=== PATIENT | female | born 1940 | race Asian ===

== ENCOUNTER 2019-11-11 19:26 | Inpatient (IN) | payer MEDICARE ==
[~2019-11-11] VITALS: Ht 157.5 cm; Wt 49.9 kg
[2019-11-11 19:26] VITALS: BP 157/73
--- NOTE | 2019-11-11 19:30 | NUR ---
ED Nurse Note: BROUGHT IN BY RODNEY THORNTON FROM HOME C/O KNEE WEAKNESS. PER PATIENT, SHE COMPLAINS OF WEAK KNEES X1DAY AND COULD NOT WALK. VSS WITH TACHY OF 109 AT BEDSIDE, DOES NOT PRESENT WITH FEVER OR COUGH. AAOX4, SERBIAN SPEAKING ONLY, NONAMBULATORY.
--- NOTE | 2019-11-11 19:40 | NUR ---
ED Nurse Note: BLOOD DRAWN AND SENT TO LAB.
--- NOTE | 2019-11-11 19:45 | NUR ---
ED Nurse Note: PT WENT FOR CT
--- NOTE | 2019-11-11 20:16 | NUR ---
ED Nurse Note: PT BACK FROM CT
--- NOTE | 2019-11-11 20:18 | Emergency Room Report ---
History of Present Illness General Chief Complaint: Generalized Weakness Source: Patient Present Illness HPI 79-year-old female presents the ED for evaluation of weakness. Found on street. Close to her home. Brought in by EMS. Patient states her "legs gave out" denies any dizziness. Denies any chest pain or shortness of breath. Denies fevers or chills. No other aggravating relieving factors. Denies any other associated symptoms Allergies: Coded Allergies: No Known Allergies (Unverified , 11/11/19) COVID-19 Screening Contact w/high risk pt: No Recent Travel to affected area: No Experienced COVID-19 symptoms?: No Patient History Past Medical History: HTN Past Surgical History: none Pertinent Family History: none Social History: Denies: smoking, alcohol use, drug use Now: No Immunizations: UTD Reviewed Nursing Documentation: PMH: Agreed; PSxH: Agreed Nursing Documentation-PMH Past Medical History: No History, Except For Hx Hypertension: Yes Review of Systems All Other Systems: negative except mentioned in HPI Physical Exam Vital Signs Date Time Temp Pulse Resp B/P (MAP) Pulse Ox O2 Delivery O2 Flow Rate FiO2 11/11/19 19:18 98.1 105 16 176/82 (113) 99 Room Air 11/11/19 19:26 98 Sp02 EP Interpretation: reviewed, normal General Appearance: no apparent distress, alert, GCS 15, non-toxic Head: normocephalic, atraumatic Eyes: bilateral eye normal inspection, bilateral eye PERRL ENT: hearing grossly normal, normal pharynx, no angioedema, normal voice Neck: full range of motion, supple/symm/no masses Respiratory: chest non-tender, lungs clear, normal breath sounds, speaking full sentences Cardiovascular #1: regular rate, rhythm, no edema Cardiovascular #2: 2+ carotid (R), 2+ carotid (L), 2+ radial (R), 2+ radial (L) , 2+ dorsalis pedis (R), 2+ dorsalis pedis (L) Gastrointestinal: normal bowel sounds, non tender, soft, non-distended, no guarding, no rebound Rectal: deferred Genitourinary: normal inspection, no CVA tenderness Musculoskeletal: back normal, normal range of motion, gait/station normal, non- tender Neurologic: alert, motor strength/tone normal, oriented x3, sensory intact, responsive, speech normal Psychiatric: judgement/insight normal, memory normal, mood/affect normal, no suicidal/homicidal ideation Reflexes: 3+ bicep (R), 3+ bicep (L), 3+ tricep (R), 3+ tricep (L), 3+ knee (R) , 3+ knee (L) Skin: other - see nursing skin notes Lymphatic: no adenopathy Medical Decision Making Diagnostic Impression: Primary Impression: Episode of generalized weakness Additional Impression: Hyponatremia ER Course Hospital Course 79-year-old female presenting to ED with generalized weakness Differential diagnoses include: Pneumonia, UTI, dehydration, VT/unstable angina Clinical course Patient placed on stretcher. On compliance monitor with stable vitals are ED course. After initial history and physical, I ordered labs, IV fluids, EKG, chest x-ray, CT head, bialteral knee xray Labs - no leukocytosis, hb/hct stable, Na 112, Cl 70 EKG - sinus tachycardia no acute ischemic changes itnerpreted by me CXR - no acute process CT Head no actue process bialteral knee xray no acute process patient alert oriented. vitals stable. started on NS maintenance fluids. Case discussed with Dr Lowery and they agreed to admit patient to their service for further care and support I feel this is a highly complex case requiring extensive working including EKG/ Rhythm strip, Xray/CT/US, Blood/urine lab work, repeat exams while in ED, and administration of strong opiates/narcotics for pain control, admission to hospital or close patient follow up. Diagnosis - hyponatremia, episode of generalized weakness Patient admitted to floor in serious condition Labs Test 11/11/19 20:00 White Blood Count 3.6 K/UL (4.8-10.8) Red Blood Count 3.24 M/UL (4.20-5.40) Hemoglobin 9.9 G/DL (12.0-16.0) Hematocrit 29.0 % (37.0-47.0) Mean Corpuscular Volume 90 FL (80-99) Mean Corpuscular Hemoglobin 30.6 PG (27.0-31.0) Mean Corpuscular Hemoglobin Concent 34.0 G/DL (32.0-36.0) Red Cell Distribution Width 11.0 % (11.6-14.8) Platelet Count 210 K/UL (150-450) Mean Platelet Volume 5.5 FL (6.5-10.1) Neutrophils (%) (Auto) 57.4 % (45.0-75.0) Lymphocytes (%) (Auto) 28.2 % (20.0-45.0) Monocytes (%) (Auto) 13.0 % (1.0-10.0) Eosinophils (%) (Auto) 0.7 % (0.0-3.0) Basophils (%) (Auto) 0.8 % (0.0-2.0) Sodium Level 112 MMOL/L (136-145) Potassium Level 3.7 MMOL/L (3.5-5.1) Chloride Level 78 MMOL/L (98-107) Carbon Dioxide Level 20 MMOL/L (21-32) Anion Gap 13 mmol/L (5-15) Blood Urea Nitrogen 10 mg/dL (7-18) Creatinine 0.8 MG/DL (0.55-1.30) Estimat Glomerular Filtration Rate > 60 mL/min (>60) Glucose Level 170 MG/DL (74-106) Calcium Level 8.9 MG/DL (8.5-10.1) Total Bilirubin 1.0 MG/DL (0.2-1.0) Aspartate Amino Transf (AST/SGOT) 16 U/L (15-37) Alanine Aminotransferase (ALT/SGPT) 20 U/L (12-78) Alkaline Phosphatase 68 U/L (46-116) Troponin I 0.001 ng/mL (0.000-0.056) Pro-B-Type Natriuretic Peptide 147 pg/mL (0-125) Total Protein 7.0 G/DL (6.4-8.2) Albumin 3.8 G/DL (3.4-5.0) Globulin 3.2 g/dL Albumin/Globulin Ratio 1.2 (1.0-2.7) EKG Diagnostic Results Rate: tachycardiac Rhythm: NSR ST Segments: no acute changes ASA given to the pt in ED: No Rhythm Strip Diag. Results EP Interpretation: yes Rhythm: NSR, no PVC's, no ectopy Chest X-Ray Diagnostic Results Chest X-Ray Diagnostic Results : Chest X-Ray Ordered: Yes # of Views/Limited/Complete: 1 View Indication: Other EP Interpretation: Yes Interpretation: no consolidation, no effusion, no pneumothorax, no acute cardiopulmonary disease Impression: No acute disease Electronically Signed by: Electronically signed by Yunior Coffman MD Other X-Ray Diagnostic Results Other X-Ray Diagnostic Results #1: X-Ray ordered: R knee # of Views/Limited Vs Complete: 3 View Indication: Pain EP Interpretation: Yes Interpretation: no dislocation, no soft tissue swelling, no fractures Impression: No acute disease Electronically Signed by: Electronically signed by Yunior Coffman MD Other X-Ray Diagnostic Results #2: X-Ray ordered: L knee # of Views/Limited Vs Complete: 3 View Indication: Pain EP Interpretation: Yes Interpretation: no dislocation, no soft tissue swelling, no fractures Impression: No acute disease Electronically Signed by: Electronically signed by Yunior Coffman MD CT/MRI/US Diagnostic Results CT/MRI/US Diagnostic Results : Imaging Test Ordered: CT head Impression COMPARISON: No relevant prior studies available. FINDINGS: Brain: No acute intracranial hemorrhage or cortical ischemia. Chronic small vessel ischemic changes. Ventricles: Unremarkable. Bones/joints: Unremarkable. No acute fracture. Soft tissues: Unremarkable. Sinuses: Unremarkable as visualized. Mastoid air cells: Unremarkable as visualized. IMPRESSION: No acute intracranial hemorrhage or skull fracture. Last Vital Signs Date Time Temp Pulse Resp B/P (MAP) Pulse Ox O2 Delivery O2 Flow Rate FiO2 11/11/19 19:26 109 16 Room Air 98 11/11/19 19:26 98.4 157/73 99 Status: improved Disposition: ADMITTED INPATIENT Condition: Serious Yunior Coffman MD Nov 11, 2019 20:18
--- NOTE | 2019-11-11 20:25 | Diagnostic Imaging Report ---
EXAM: CT Head Without Intravenous Contrast CLINICAL HISTORY: WEAK TECHNIQUE: Axial computed tomography images of the head/brain without intravenous contrast. CTDI is 53 mGy and DLP is 1045 mGy-cm. One or more of the following dose reduction techniques were used: automated exposure control, adjustment of the mA and/or kV according to patient size, use of iterative reconstruction technique. COMPARISON: No relevant prior studies available. FINDINGS: Brain: No acute intracranial hemorrhage or cortical ischemia. Chronic small vessel ischemic changes. Ventricles: Unremarkable. Bones/joints: Unremarkable. No acute fracture. Soft tissues: Unremarkable. Sinuses: Unremarkable as visualized. Mastoid air cells: Unremarkable as visualized. IMPRESSION: No acute intracranial hemorrhage or skull fracture.
[2019-11-11 20:32] LABS: BASOPHILS % (AUTO) 0.8 % (0.0-2.0); EOSINOPHILS % (AUTO) 0.7 % (0.0-3.0); HEMOGLOBIN 9.9 G/DL (12.0-16.0); LYMPHOCYTES % (AUTO) 28.2 % (20.0-45.0); MEAN CORPUSCULAR VOLUME 90 FL (80-99); NEUTROPHILS % (AUTO) 57.4 % (45.0-75.0); PLATELET COUNT 210 K/UL (150-450); RED BLOOD COUNT 3.24 M/UL (4.20-5.40); WHITE BLOOD COUNT 3.6 K/UL (4.8-10.8)
--- NOTE | 2019-11-11 20:35 | Diagnostic Imaging Report ---
EXAM: XR Left Knee, 3 Views CLINICAL HISTORY: WEAK TECHNIQUE: Three views of the left knee. COMPARISON: No relevant prior studies available. FINDINGS: Bones/joints: No acute displaced fracture or dislocation. No significant joint effusion. Soft tissues: Unremarkable. IMPRESSION: No acute displaced fracture or dislocation.
--- NOTE | 2019-11-11 20:35 | Diagnostic Imaging Report ---
EXAM: XR Right Knee, 3 Views CLINICAL HISTORY: WEAK TECHNIQUE: Three views of the right knee. COMPARISON: No relevant prior studies available. FINDINGS: Bones/joints: No acute displaced fracture or dislocation. No significant joint effusion. Soft tissues: Unremarkable. IMPRESSION: No acute displaced fracture or dislocation.
--- NOTE | 2019-11-11 20:35 | Diagnostic Imaging Report ---
EXAM: XR Chest, 1 View CLINICAL HISTORY: WEAK TECHNIQUE: Frontal view of the chest. COMPARISON: No relevant prior studies available. FINDINGS: Lungs: Left perihilar 3 cm prominence which may be artifactual, consolidation, versus lesion. Pleural space: Unremarkable. No pneumothorax. Heart: Unremarkable. No cardiomegaly. Mediastinum: Unremarkable. Bones/joints: Unremarkable. IMPRESSION: Left perihilar 3 cm prominence which may be artifactual, consolidation, versus lesion.
[2019-11-11 20:47] LABS: ALANINE AMINOTRANSFERASE 20 U/L (12-78); ALBUMIN 3.8 G/DL (3.4-5.0); ALBUMIN/GLOBULIN RATIO 1.2 (1.0-2.7); ALKALINE PHOSPHATASE 68 U/L (46-116); ANION GAP 13 mmol/L (5-15); ASPARTATE AMINO TRANSFERASE 16 U/L (15-37); BLOOD UREA NITROGEN 10 mg/dL (7-18); CALCIUM 8.9 MG/DL (8.5-10.1); CARBON DIOXIDE 20 MMOL/L (21-32); CHLORIDE 78 MMOL/L (98-107); CREATININE 0.8 MG/DL (0.55-1.30); POTASSIUM 3.7 MMOL/L (3.5-5.1)
[2019-11-11 20:58] LABS: SODIUM 112 MMOL/L (136-145)
[2019-11-11 22:00] VITALS: BP 134/54
--- NOTE | 2019-11-11 22:00 | NUR ---
ED Nurse Note: pt is calm and resting. vss, nad.
[2019-11-11 22:30] LABS: BILIRUBIN, URINE NEGATIVE (NEGATIVE); COLOR,URINE PALE YELLOW; GLUCOSE, URINE (UA) NEGATIVE (NEGATIVE); KETONES,URINE NEGATIVE (NEGATIVE); LEUKOCYTE ESTERASE ,URINE NEGATIVE (NEGATIVE); NITRITE,URINE NEGATIVE (NEGATIVE); PH,URINE 8 (4.5-8.0); PROTEIN,URINE 1+ (NEGATIVE); UROBILINOGEN,URINE NORMAL MG/DL (0.0-1.0)
[2019-11-11 22:31] LABS: APPEARANCE,URINE CLEAR
[2019-11-12] VITALS (11 sets, daily range): BP systolic 126–168; BP diastolic 66–92
--- NOTE | 2019-11-12 | NUR ---
ED Nurse Note: repeat BMP drawn per admitting order
[2019-11-12 00:47] LABS: ANION GAP 11 mmol/L (5-15); BLOOD UREA NITROGEN 8 mg/dL (7-18); CALCIUM 8.3 MG/DL (8.5-10.1); CARBON DIOXIDE 20 MMOL/L (21-32); CHLORIDE 85 MMOL/L (98-107); CREATININE 0.6 MG/DL (0.55-1.30); POTASSIUM 3.6 MMOL/L (3.5-5.1)
[2019-11-12 00:53] LABS: SODIUM 113 MMOL/L (136-145)
--- NOTE | 2019-11-12 01:00 | NUR ---
ED Nurse Note: pt is calm and sleeping. vss, nad.
--- NOTE | 2019-11-12 04:00 | NUR ---
ED Nurse Note: repeat bmp drawn per admitting order
[2019-11-12 04:08] LABS: BASOPHILS % (AUTO) 1.4 % (0.0-2.0); HEMATOCRIT 29.7 % (37.0-47.0); HEMOGLOBIN 10.9 G/DL (12.0-16.0); LYMPHOCYTES % (AUTO) 48.4 % (20.0-45.0); MEAN CORPUSCULAR VOLUME 85 FL (80-99); MONOCYTES % (AUTO) 18.4 % (1.0-10.0); NEUTROPHILS % (AUTO) 30.9 % (45.0-75.0); PLATELET COUNT 246 K/UL (150-450); RED BLOOD COUNT 3.49 M/UL (4.20-5.40); WHITE BLOOD COUNT 4.7 K/UL (4.8-10.8)
[2019-11-12 04:49] LABS: ALANINE AMINOTRANSFERASE 21 U/L (12-78); ALBUMIN 3.8 G/DL (3.4-5.0); ALBUMIN/GLOBULIN RATIO 1.2 (1.0-2.7); ALKALINE PHOSPHATASE 72 U/L (46-116); ANION GAP 11 mmol/L (5-15); ASPARTATE AMINO TRANSFERASE 18 U/L (15-37); BILIRUBIN,TOTAL 0.9 MG/DL (0.2-1.0); BLOOD UREA NITROGEN 6 mg/dL (7-18); CALCIUM 8.6 MG/DL (8.5-10.1); CARBON DIOXIDE 21 MMOL/L (21-32); CHLORIDE 89 MMOL/L (98-107); CREATININE 0.6 MG/DL (0.55-1.30); POTASSIUM 3.9 MMOL/L (3.5-5.1); SODIUM 121 MMOL/L (136-145)
--- NOTE | 2019-11-12 06:00 | NUR ---
ED Nurse Note: pt is calm and sleeping. vss, nad.
--- NOTE | 2019-11-12 06:52 | NUR ---
HAND-OFF: Report given to Mickie DIAZ. Endorsed plan of care.
--- NOTE | 2019-11-12 07:05 | NUR ---
ED Nurse Note: Received report from Berlin Van, patient is in the bed with close eyes, VSS at this time, no acute distress noted.
--- NOTE | 2019-11-12 08:00 | NUR ---
ED Nurse Note: morning labs taken, sent to the lab
--- NOTE | 2019-11-12 08:10 | NUR ---
ED Nurse Note: Breakfast tray provided.
--- NOTE | 2019-11-12 08:16 | Consultation ---
History of Present Illness General Chief Complaint: Generalized Weakness Reason for Consultation: Hyponatremia Present Illness HPI 79 yo F w/ no known PMHx who was BIBA after being found down on the street. Patient states her "legs gave out" denies any dizziness. Denies any chest pain or shortness of breath. Denies fevers or chills. No other aggravating relieving factors. Denies any other associated symptoms. In the ED pt was found to be initially hypertensive and tachycardic but HDS and sating well on RA. Hemodynamics improved after 2L NS IV was given. EKG sinus tac per ER read. Labs sig for Na of 113, hypo k. XR bilat knee wnl. CTB wnl. CXR w/ L perihilar 3cm lesion. She received 2L of NS- repeat sodium 121 this am - with again dropping to 118. IVF switch to 3%ns at 30cc at that pointt Allergies: Coded Allergies: No Known Allergies (Unverified , 11/11/19) Medication History No Active Prescriptions or Reported Meds Patient History Healthcare decision maker Resuscitation status Advanced Directive on File Review of Systems All Other Systems: negative except mentioned in HPI Physical Exam General Appearance: WD/WN, no apparent distress Lines, tubes and drains: peripheral HEENT: normocephalic, atraumatic, EOMI Neck: non-tender, normal alignment Respiratory/Chest: chest wall non-tender, lungs clear, normal breath sounds Cardiovascular/Chest: normal peripheral pulses, normal rate, regular rhythm Abdomen: normal bowel sounds, non tender, soft, no organomegaly Extremities: normal range of motion, non-tender, no edema Skin Exam: normal pigmentation, warm/dry, no diaphoresis 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 Last 24 Hour Vital Signs Date Time Temp Pulse Resp B/P (MAP) Pulse Ox O2 Delivery O2 Flow Rate FiO2 11/12/19 06:00 98.2 75 18 137/88 98 Room Air 11/12/19 01:00 98.5 81 18 145/72 99 Room Air 98 11/11/19 22:00 78 16 134/54 99 Room Air 98 11/11/19 19:26 109 16 Room Air 98 11/11/19 19:26 98.4 109 16 157/73 99 Room Air 11/11/19 19:18 98.1 105 16 176/82 (113) 99 Room Air Intake and Output 11/11/19 11/12/19 19:00 07:00 Intake Total 1500 ml Output Total 1400 ml Balance 100 ml Intake Oral 0 ml IV Total 1500 ml Output Urine Total 1400 ml Laboratory Tests Test 11/11/19 20:00 11/11/19 20:45 11/11/19 23:40 11/12/19 03:55 White Blood Count 3.6 K/UL (4.8-10.8) L 4.7 K/UL (4.8-10.8) L Red Blood Count 3.24 M/UL (4.20-5.40) L 3.49 M/UL (4.20-5.40) L Hemoglobin 9.9 G/DL (12.0-16.0) L 10.9 G/DL (12.0-16.0) L Hematocrit 29.0 % (37.0-47.0) L 29.7 % (37.0-47.0) L Mean Corpuscular Volume 90 FL (80-99) 85 FL (80-99) Mean Corpuscular Hemoglobin 30.6 PG (27.0-31.0) 31.1 PG (27.0-31.0) H Mean Corpuscular Hemoglobin Concent 34.0 G/DL (32.0-36.0) 36.5 G/DL (32.0-36.0) H Red Cell Distribution Width 11.0 % (11.6-14.8) L 10.0 % (11.6-14.8) L Platelet Count 210 K/UL (150-450) 246 K/UL (150-450) Mean Platelet Volume 5.5 FL (6.5-10.1) L 5.1 FL (6.5-10.1) L Neutrophils (%) (Auto) 57.4 % (45.0-75.0) 30.9 % (45.0-75.0) L Lymphocytes (%) (Auto) 28.2 % (20.0-45.0) 48.4 % (20.0-45.0) H Monocytes (%) (Auto) 13.0 % (1.0-10.0) H 18.4 % (1.0-10.0) H Eosinophils (%) (Auto) 0.7 % (0.0-3.0) 1.0 % (0.0-3.0) Basophils (%) (Auto) 0.8 % (0.0-2.0) 1.4 % (0.0-2.0) Sodium Level 112 MMOL/L (136-145) *L 113 MMOL/L (136-145) *L 121 MMOL/L (136-145) L Potassium Level 3.7 MMOL/L (3.5-5.1) 3.6 MMOL/L (3.5-5.1) 3.9 MMOL/L (3.5-5.1) Chloride Level 78 MMOL/L (98-107) L 85 MMOL/L (98-107) L 89 MMOL/L (98-107) L Carbon Dioxide Level 20 MMOL/L (21-32) L 20 MMOL/L (21-32) L 21 MMOL/L (21-32) Anion Gap 13 mmol/L (5-15) 11 mmol/L (5-15) 11 mmol/L (5-15) Blood Urea Nitrogen 10 mg/dL (7-18) 8 mg/dL (7-18) 6 mg/dL (7-18) L Creatinine 0.8 MG/DL (0.55-1.30) 0.6 MG/DL (0.55-1.30) 0.6 MG/DL (0.55-1.30) Estimat Glomerular Filtration Rate > 60 mL/min (>60) > 60 mL/min (>60) > 60 mL/min (>60) Glucose Level 170 MG/DL (74-106) H 121 MG/DL (74-106) H 122 MG/DL (74-106) H Osmolality 136 mOsm/kg (297-317) L Calcium Level 8.9 MG/DL (8.5-10.1) 8.3 MG/DL (8.5-10.1) L 8.6 MG/DL (8.5-10.1) Total Bilirubin 1.0 MG/DL (0.2-1.0) 0.9 MG/DL (0.2-1.0) Aspartate Amino Transf (AST/SGOT) 16 U/L (15-37) 18 U/L (15-37) Alanine Aminotransferase (ALT/SGPT) 20 U/L (12-78) 21 U/L (12-78) Alkaline Phosphatase 68 U/L (46-116) 72 U/L (46-116) Troponin I 0.001 ng/mL (0.000-0.056) Pro-B-Type Natriuretic Peptide 147 pg/mL (0-125) H Total Protein 7.0 G/DL (6.4-8.2) 7.1 G/DL (6.4-8.2) Albumin 3.8 G/DL (3.4-5.0) 3.8 G/DL (3.4-5.0) Globulin 3.2 g/dL 3.3 g/dL Albumin/Globulin Ratio 1.2 (1.0-2.7) 1.2 (1.0-2.7) Urine Color Pale yellow Urine Appearance Clear Urine pH 8 (4.5-8.0) Urine Specific [place] 1.015 (1.005-1.035) Urine Protein 1+ (NEGATIVE) H Urine Glucose (UA) Negative (NEGATIVE) Urine Ketones Negative (NEGATIVE) Urine Blood Negative (NEGATIVE) Urine Nitrite Negative (NEGATIVE) Urine Bilirubin Negative (NEGATIVE) Urine Urobilinogen Normal MG/DL (0.0-1.0) Urine Leukocyte Esterase Negative (NEGATIVE) Urine RBC 0 /HPF (0 - 2) Urine WBC 0-2 /HPF (0 - 2) Urine Squamous Epithelial Cells Few /LPF (NONE/OCC) Urine Amorphous Sediment Few /LPF (NONE) H Urine Bacteria Occasional /HPF (NONE) Urine Osmolality 136 mOsm/kg (429-449) L Urine Random Creatinine Pending Urine Random Microalbumin Pending Urine Random Sodium 41 mmol/L (20-110) Urine Random Chloride 50 mmol/L (55-125) L Urine Creatinine 6.7 MG/DL (30.0-125.0) L Urine Microalbumin/Creatinine Ratio Pending Magnesium Level 1.8 MG/DL (1.8-2.4) Thyroid Stimulating Hormone (TSH) 0.217 uiU/mL (0.358-3.740) Test 11/12/19 04:20 11/12/19 07:59 Cortisol AM Sample Pending Sodium Level Pending Potassium Level Pending Chloride Level Pending Carbon Dioxide Level Pending Blood Urea Nitrogen Pending Creatinine Pending Estimat Glomerular Filtration Rate Pending Glucose Level Pending Calcium Level Pending Height (Feet): 5 Height (Inches): 2.00 Weight (Pounds): 110 Medications Current Medications Medications (Trade) Dose Ordered Sig/Michelle Route PRN Reason Start Time Stop Time Status Last Admin Dose Admin Acetaminophen (Tylenol) 650 mg Q4H PRN ORAL Mild Pain (Pain Scale 1-3) 11/11/19 21:45 12/11/19 21:44 Acetaminophen (Tylenol) 650 mg Q4H PRN ORAL Temp >100.5 11/11/19 21:45 12/11/19 21:44 Dextrose (Dextrose 50%) 25 ml Q30M PRN IV Hypoglycemia 11/11/19 21:45 02/09/20 21:44 Dextrose (Dextrose 50%) 50 ml Q30M PRN IV Hypoglycemia 11/11/19 21:45 02/09/20 21:44 Enoxaparin Sodium (Lovenox) 40 mg DAILY SUBQ 11/12/19 09:00 02/10/20 08:59 Ondansetron HCl (Zofran) 4 mg Q6H PRN IVP Nausea & Vomiting 11/11/19 21:45 12/11/19 21:44 Sodium Chloride 1,000 ml @ 200 mls/hr Q5H IV 11/11/19 21:15 12/11/19 21:14 11/12/19 07:36 Assessment/Plan Diagnosis [place] I: #Hyponatremia- likely hypovolumic given response to hydration- urine chemistries however suggest excess free water intake given low urine osmol and urine sodium 40 - however checked after NS hydration administered #AMS and generalized weakness likely due to severe hyponatremia #possible HTN #s/p fall #syncope? - switch to 3% ns at 30cc/hr - monitor BMP q4hr - replete K - monitor mag and phos daily - repeat urine sodium, osmol - check TSh - am cortisol - target correction < 10 meq over 24 hours - hydralazine prn for elevated BP - 2d echo Conrad Noland M.D. Nov 12, 2019 08:16
[2019-11-12 08:34] LABS: ANION GAP 11 mmol/L (5-15); BLOOD UREA NITROGEN 5 mg/dL (7-18); CALCIUM 9.1 MG/DL (8.5-10.1); CARBON DIOXIDE 19 MMOL/L (21-32); CHLORIDE 87 MMOL/L (98-107); CREATININE 0.5 MG/DL (0.55-1.30); POTASSIUM 3.4 MMOL/L (3.5-5.1)
[2019-11-12 08:48] LABS: SODIUM 118 MMOL/L (136-145)
[2019-11-12] MEDS: Enoxaparin 40mg Inj SUBQ SCH (09:13)
[2019-11-12] MEDS ORDERED: NaCl 3% 500ml 250 ML IV SCH (09:15)
--- NOTE | 2019-11-12 12:03 | NUR ---
ED Nurse Note: BMP labs taken, sent down
[2019-11-12 12:54] LABS: ANION GAP 11 mmol/L (5-15); BLOOD UREA NITROGEN 5 mg/dL (7-18); CALCIUM 8.6 MG/DL (8.5-10.1); CARBON DIOXIDE 19 MMOL/L (21-32); CHLORIDE 89 MMOL/L (98-107); CREATININE 0.4 MG/DL (0.55-1.30); POTASSIUM 3.3 MMOL/L (3.5-5.1)
[2019-11-12 12:57] LABS: SODIUM 119 MMOL/L (136-145)
--- NOTE | 2019-11-12 13:14 | NUR ---
ED Nurse Note: Patient was able to use bed side comode, patient stated fell dizzy, has unsteady gait. AAO x4, VSS at this time.
[2019-11-12] MEDS ORDERED: HydrALAZINE 25mg tab ORAL PRN (14:15)
--- NOTE | 2019-11-12 14:17 | History and Physical ---
History of Present Illness General Date patient seen: Nov 12, 2019 Reason for Hospitalization: Generalized Weakness Present Illness HPI 79 yo F w/ no known PMHx (pt poor historian & limited by language barrier) who was BIBA after being found down on the street. Patient states her "legs gave out " denies any dizziness. Denies any chest pain or shortness of breath. Denies fevers or chills. No other aggravating relieving factors. Denies any other associated symptoms. In the ED pt was found to be initially hypertensive and tachycardic but HDS and sating well on RA. Hemodynamics improved after 2L NS IV was given. EKG sinus tac per ER read. Labs sig for Na of 119, hypo k. XR bilat knee wnl. CTB wnl. CXR w/ L perihilar 3cm lesion (possible artifact). On exam pt was calm and alert and oriented c/w a chronic hyponatremia. Denied current dizziness. Allergies: Coded Allergies: No Known Allergies (Unverified , 11/11/19) COVID-19 Screening Contact w/high risk pt: No Recent Travel to affected area: No Experienced COVID-19 symptoms?: No Patient History Healthcare decision maker Resuscitation status Advanced Directive on File Review of Systems Constitutional: Denies: no symptoms, see HPI, chills, sweats, fever, malaise, weakness, other Respiratory: Denies: no symptoms, see HPI, cough, orthopnea, shortness of breath, stridor, wheezing, CAZARES, sputum, other Cardiovascular: Denies: no symptoms, see HPI, chest pain, edema, palpitations, syncope, PND, other Gastrointestinal: Denies: no symptoms, see HPI, abdominal pain, constipation, diarrhea, nausea, vomiting, melena, hematemesis, other Genitourinary: Denies: no symptoms, see HPI, discharge, dysuria, frequency, hematuria, pain, retention, incontinence, urgency, vag bleed/dc, other Skin: Denies: no symptoms, see HPI, rash, change in color, change in hair/nails , dryness, lesions, other Neurological: Reports: dizziness Physical Exam General Appearance: WD/WN, no apparent distress, alert HEENT: normocephalic, atraumatic, anicteric, PERRL, EOMI Neck: normal alignment, supple Respiratory/Chest: lungs clear, normal breath sounds, no respiratory distress Cardiovascular/Chest: normal peripheral pulses, regular rhythm, regularly irregular, no gallop/murmur, no JVD Abdomen: non tender, soft Extremities: normal inspection, no edema Neurologic: tie inspector II-XII grossly normal, alert Last 24 Hour Vital Signs Date Time Temp Pulse Resp B/P (MAP) Pulse Ox O2 Delivery O2 Flow Rate FiO2 11/12/19 10:45 98.2 74 18 135/87 98 Room Air 98 11/12/19 06:00 98.2 75 18 137/88 98 Room Air 11/12/19 01:00 98.5 81 18 145/72 99 Room Air 98 11/11/19 22:00 78 16 134/54 99 Room Air 98 11/11/19 19:26 109 16 Room Air 98 11/11/19 19:26 98.4 109 16 157/73 99 Room Air 11/11/19 19:18 98.1 105 16 176/82 (113) 99 Room Air Intake and Output 11/11/19 11/12/19 19:00 07:00 Intake Total 1500 ml Output Total 1400 ml Balance 100 ml Intake Oral 0 ml IV Total 1500 ml Output Urine Total 1400 ml Laboratory Tests Test 11/11/19 20:00 11/11/19 20:45 11/11/19 23:40 11/12/19 03:55 White Blood Count 3.6 K/UL (4.8-10.8) L 4.7 K/UL (4.8-10.8) L Red Blood Count 3.24 M/UL (4.20-5.40) L 3.49 M/UL (4.20-5.40) L Hemoglobin 9.9 G/DL (12.0-16.0) L 10.9 G/DL (12.0-16.0) L Hematocrit 29.0 % (37.0-47.0) L 29.7 % (37.0-47.0) L Mean Corpuscular Volume 90 FL (80-99) 85 FL (80-99) Mean Corpuscular Hemoglobin 30.6 PG (27.0-31.0) 31.1 PG (27.0-31.0) H Mean Corpuscular Hemoglobin Concent 34.0 G/DL (32.0-36.0) 36.5 G/DL (32.0-36.0) H Red Cell Distribution Width 11.0 % (11.6-14.8) L 10.0 % (11.6-14.8) L Platelet Count 210 K/UL (150-450) 246 K/UL (150-450) Mean Platelet Volume 5.5 FL (6.5-10.1) L 5.1 FL (6.5-10.1) L Neutrophils (%) (Auto) 57.4 % (45.0-75.0) 30.9 % (45.0-75.0) L Lymphocytes (%) (Auto) 28.2 % (20.0-45.0) 48.4 % (20.0-45.0) H Monocytes (%) (Auto) 13.0 % (1.0-10.0) H 18.4 % (1.0-10.0) H Eosinophils (%) (Auto) 0.7 % (0.0-3.0) 1.0 % (0.0-3.0) Basophils (%) (Auto) 0.8 % (0.0-2.0) 1.4 % (0.0-2.0) Sodium Level 112 MMOL/L (136-145) *L 113 MMOL/L (136-145) *L 121 MMOL/L (136-145) L Potassium Level 3.7 MMOL/L (3.5-5.1) 3.6 MMOL/L (3.5-5.1) 3.9 MMOL/L (3.5-5.1) Chloride Level 78 MMOL/L (98-107) L 85 MMOL/L (98-107) L 89 MMOL/L (98-107) L Carbon Dioxide Level 20 MMOL/L (21-32) L 20 MMOL/L (21-32) L 21 MMOL/L (21-32) Anion Gap 13 mmol/L (5-15) 11 mmol/L (5-15) 11 mmol/L (5-15) Blood Urea Nitrogen 10 mg/dL (7-18) 8 mg/dL (7-18) 6 mg/dL (7-18) L Creatinine 0.8 MG/DL (0.55-1.30) 0.6 MG/DL (0.55-1.30) 0.6 MG/DL (0.55-1.30) Estimat Glomerular Filtration Rate > 60 mL/min (>60) > 60 mL/min (>60) > 60 mL/min (>60) Glucose Level 170 MG/DL (74-106) H 121 MG/DL (74-106) H 122 MG/DL (74-106) H Osmolality 136 mOsm/kg (297-317) L Calcium Level 8.9 MG/DL (8.5-10.1) 8.3 MG/DL (8.5-10.1) L 8.6 MG/DL (8.5-10.1) Total Bilirubin 1.0 MG/DL (0.2-1.0) 0.9 MG/DL (0.2-1.0) Aspartate Amino Transf (AST/SGOT) 16 U/L (15-37) 18 U/L (15-37) Alanine Aminotransferase (ALT/SGPT) 20 U/L (12-78) 21 U/L (12-78) Alkaline Phosphatase 68 U/L (46-116) 72 U/L (46-116) Troponin I 0.001 ng/mL (0.000-0.056) Pro-B-Type Natriuretic Peptide 147 pg/mL (0-125) H Total Protein 7.0 G/DL (6.4-8.2) 7.1 G/DL (6.4-8.2) Albumin 3.8 G/DL (3.4-5.0) 3.8 G/DL (3.4-5.0) Globulin 3.2 g/dL 3.3 g/dL Albumin/Globulin Ratio 1.2 (1.0-2.7) 1.2 (1.0-2.7) Urine Color Pale yellow Urine Appearance Clear Urine pH 8 (4.5-8.0) Urine Specific Wheeler 1.015 (1.005-1.035) Urine Protein 1+ (NEGATIVE) H Urine Glucose (UA) Negative (NEGATIVE) Urine Ketones Negative (NEGATIVE) Urine Blood Negative (NEGATIVE) Urine Nitrite Negative (NEGATIVE) Urine Bilirubin Negative (NEGATIVE) Urine Urobilinogen Normal MG/DL (0.0-1.0) Urine Leukocyte Esterase Negative (NEGATIVE) Urine RBC 0 /HPF (0 - 2) Urine WBC 0-2 /HPF (0 - 2) Urine Squamous Epithelial Cells Few /LPF (NONE/OCC) Urine Amorphous Sediment Few /LPF (NONE) H Urine Bacteria Occasional /HPF (NONE) Urine Osmolality 136 mOsm/kg (429-449) L Urine Random Creatinine Pending Urine Random Microalbumin Pending Urine Random Sodium 41 mmol/L (20-110) Urine Random Chloride 50 mmol/L (55-125) L Urine Creatinine 6.7 MG/DL (30.0-125.0) L Urine Microalbumin/Creatinine Ratio Pending Magnesium Level 1.8 MG/DL (1.8-2.4) Thyroid Stimulating Hormone (TSH) 0.217 uiU/mL (0.358-3.740) Test 11/12/19 04:20 11/12/19 07:59 11/12/19 12:03 Cortisol AM Sample Pending Sodium Level 118 MMOL/L (136-145) *L 119 MMOL/L (136-145) *L Potassium Level 3.4 MMOL/L (3.5-5.1) L 3.3 MMOL/L (3.5-5.1) L Chloride Level 87 MMOL/L (98-107) L 89 MMOL/L (98-107) L Carbon Dioxide Level 19 MMOL/L (21-32) L 19 MMOL/L (21-32) L Anion Gap 11 mmol/L (5-15) 11 mmol/L (5-15) Blood Urea Nitrogen 5 mg/dL (7-18) L 5 mg/dL (7-18) L Creatinine 0.5 MG/DL (0.55-1.30) L 0.4 MG/DL (0.55-1.30) L Estimat Glomerular Filtration Rate > 60 mL/min (>60) > 60 mL/min (>60) Glucose Level 115 MG/DL (74-106) H 109 MG/DL (74-106) H Calcium Level 9.1 MG/DL (8.5-10.1) 8.6 MG/DL (8.5-10.1) Height (Feet): 5 Height (Inches): 2.00 Weight (Pounds): 110 Medications Current Medications Medications (Trade) Dose Ordered Sig/Michelle Route PRN Reason Start Time Stop Time Status Last Admin Dose Admin Acetaminophen (Tylenol) 650 mg Q4H PRN ORAL Mild Pain (Pain Scale 1-3) 11/11/19 21:45 12/11/19 21:44 Acetaminophen (Tylenol) 650 mg Q4H PRN ORAL Temp >100.5 11/11/19 21:45 12/11/19 21:44 Dextrose (Dextrose 50%) 25 ml Q30M PRN IV Hypoglycemia 11/11/19 21:45 02/09/20 21:44 Dextrose (Dextrose 50%) 50 ml Q30M PRN IV Hypoglycemia 11/11/19 21:45 02/09/20 21:44 Enoxaparin Sodium (Lovenox) 40 mg DAILY SUBQ 11/12/19 09:00 02/10/20 08:59 11/12/19 09:13 Ondansetron HCl (Zofran) 4 mg Q6H PRN IVP Nausea & Vomiting 11/11/19 21:45 12/11/19 21:44 Sodium Chloride 250 ml @ 30 mls/hr ONCE IV 11/12/19 09:15 11/12/19 18:00 11/12/19 09:56 Assessment/Plan Assessment/Plan: 79 yo F w/ no known PMHx (pt poor historian & limited by language barrier) who was BIBA after being found down on the [address]. c/o dizziness found to be hyponatremic. #Hyponatremia, suspect chronic #Hypokalemia #Dehydration (tachy, elevated bun/cr, imp w/ fluids in ED) - admit to in pt - nephrology consult - s/p 2L NS in ED - c/w IVF per nephro - close obs of Na correction w/ serial chem, goal < 10meq per 24 hrs #Acute encephalopathy w/ fall #Possible syncope, near syncope (suspect due to dehydration) - CTB -> no acute changes - no Fx on BL Knee XR - echo technician - TTE - Will consider cards consult if episodes persist #Pulmonary abn - Left perihilar 3 cm prominence which may be artifactual, consolidation, versus lesion. - repeat cxr in am #Hx HTN - ctm - prn hydral po for sbp > 160 #FEN/PPx - IVF as above - replete lytes as needed - Regular diet - Lovenox ppx, SCDs, early ambulation FULL CODE I spent 65 min on this case and 29 min was dedicated to counseling and care coordination including discussion including communication w/ overnight coverage , consultants, RN at bedside and ER MD. Time of this note may not reflect the time of the clinical encounter. Russ Jack MD Nov 12, 2019 14:17
--- NOTE | 2019-11-12 14:25 | NUR ---
ED Nurse Note: US tech at bedside.
[2019-11-12 17:14] LABS: ANION GAP 14 mmol/L (5-15); BLOOD UREA NITROGEN 4 mg/dL (7-18); CALCIUM 8.4 MG/DL (8.5-10.1); CARBON DIOXIDE 18 MMOL/L (21-32); CHLORIDE 92 MMOL/L (98-107); CREATININE 0.5 MG/DL (0.55-1.30); POTASSIUM 3.3 MMOL/L (3.5-5.1); SODIUM 124 MMOL/L (136-145)
--- NOTE | 2019-11-12 17:35 | NUR ---
ED Nurse Note: Lunch tray provided.
--- NOTE | 2019-11-12 19:12 | NUR ---
ED Nurse Note: Patient is relaxing with no complaints, will continue to monitor.
--- NOTE | 2019-11-12 20:15 | NUR ---
ED Nurse Note: Patient is sleeping with no physical s/s of acute distress will continue to monitor.
--- NOTE | 2019-11-12 20:38 | NUR ---
ED Nurse Note: Repeat BMP drawn and sent down to lab.
[2019-11-12 21:27] LABS: ANION GAP 9 mmol/L (5-15); BLOOD UREA NITROGEN 8 mg/dL (7-18); CALCIUM 8.9 MG/DL (8.5-10.1); CARBON DIOXIDE 21 MMOL/L (21-32); CHLORIDE 93 MMOL/L (98-107); CREATININE 0.7 MG/DL (0.55-1.30); POTASSIUM 3.9 MMOL/L (3.5-5.1); SODIUM 123 MMOL/L (136-145)
--- NOTE | 2019-11-12 21:40 | NUR ---
ED Nurse Note: Patient able to void at bedside, assisted back to bed and reconnected to manager cardiac cath. Will continue to monitor for impending orders and progress.
--- NOTE | 2019-11-12 22:22 | NUR ---
ED Nurse Note: Patient resting comfortably, IV at right AC patent and running IV fluids with electrolites. Vital signs stable and updated. Will continue to monitor patient.
--- NOTE | 2019-11-12 23:30 | NUR ---
ED Nurse Note: Patient is resting comfortably, will continue to monitor.
--- NOTE | 2019-11-13 00:45 | NUR ---
ED Nurse Note: Patient transferred to striker bed, warm blankets provided, IV fluids with K still running at KVO without complication. Will continue to monitor patient for impending orders and care needs.
[2019-11-13 00:49] VITALS: BP 125/65
[2019-11-13 01:01] LABS: ANION GAP 9 mmol/L (5-15); BLOOD UREA NITROGEN 7 mg/dL (7-18); CALCIUM 8.3 MG/DL (8.5-10.1); CARBON DIOXIDE 21 MMOL/L (21-32); CHLORIDE 95 MMOL/L (98-107); CREATININE 0.6 MG/DL (0.55-1.30); POTASSIUM 4.1 MMOL/L (3.5-5.1); SODIUM 125 MMOL/L (136-145)
[2019-11-13 01:46] VITALS: BP 139/60
--- NOTE | 2019-11-13 01:46 | NUR ---
ED Nurse Note: Patient still sleeping, will continue to monitor, vital signs within normal range and documented.
--- NOTE | 2019-11-13 02:52 | NUR ---
pt emergency contact: Chanel Espino (granddaughter) [phone]
--- NOTE | 2019-11-13 03:00 | NUR ---
ED Nurse Note: Patient's grand daughter called and patient was able to talk to her on the phone. Contact and additional information was obtained for registration and medical history purposes..
--- NOTE | 2019-11-13 04:00 | NUR ---
ED Nurse Note: Repeat labs drawn along with morning labs.
--- NOTE | 2019-11-13 04:25 | NUR ---
ED Nurse Note: Patient expressed that she feels like she is not getting better and that she needs to go home. RN land mobile radio technician at bedside to render verbal intervention prior to consulting with ERMD. Will continue to monitor for final decision.
[2019-11-13 04:33] VITALS: BP 125/85
--- NOTE | 2019-11-13 05:01 | NUR ---
ED Nurse Note: Patient is resting comfortably, expressing interest in eating. Will monitor diet ordering.
[2019-11-13 05:09] LABS: ANION GAP 9 mmol/L (5-15); BLOOD UREA NITROGEN 8 mg/dL (7-18); CALCIUM 8.9 MG/DL (8.5-10.1); CARBON DIOXIDE 21 MMOL/L (21-32); CHLORIDE 94 MMOL/L (98-107); CREATININE 0.6 MG/DL (0.55-1.30); SODIUM 124 MMOL/L (136-145)
--- NOTE | 2019-11-13 05:25 | NUR ---
ED Nurse Note: Patient resting comfortably and is no longer wishing to be discharged. Will continue to monitor progress.
--- NOTE | 2019-11-13 06:26 | NUR ---
ED Nurse Note: Patient is able to void at bedside with minimal assistance.
--- NOTE | 2019-11-13 07:06 | NUR ---
HAND-OFF: Report given to Latrice DIAZ.
--- NOTE | 2019-11-13 07:16 | NUR ---
ED Nurse Note: Report received from JOE Torres. Pt is in bed, eating breakfast. No signs of acute distress noted. Rsepirations even and unlabored on room air. Vitals stable as documented.
--- NOTE | 2019-11-13 07:40 | NUR ---
ED Nurse Note: Report given to JOE Arias on 2E.
--- NOTE | 2019-11-13 07:45 | NUR ---
ED Nurse Note: Pt transferred safely to the floor on the monitor. Belongings verified. [employer] @ bedside to confirm patient is no longer "missing."
[2019-11-13 08:00] VITALS: BP 140/83
--- NOTE | 2019-11-13 08:00 | NUR ---
NURSE NOTES: Patient transferred from ED to tele, received report from JOE Pollard. Patient AOx4, on room air, fire extinguisher charger on, on room air, no active s/s cardiac, respiratory distress noticed at this time. IV on right AC 20G, asymptomatic, patent, intact, IVF running as prescribed rate. Bed in lowest position, side rails up x2, call light within reach, bed alarm on, Will continue to monitor.
[2019-11-13 08:07] LABS: ANION GAP 9 mmol/L (5-15); BLOOD UREA NITROGEN 7 mg/dL (7-18); CALCIUM 8.9 MG/DL (8.5-10.1); CARBON DIOXIDE 21 MMOL/L (21-32); CHLORIDE 94 MMOL/L (98-107); CREATININE 0.7 MG/DL (0.55-1.30); SODIUM 124 MMOL/L (136-145)
[2019-11-13] MEDS ORDERED: Sodium Phosphate 30 MM in NS 275 ML IVPB ONE (08:30)
[2019-11-13] MEDS: Enoxaparin 40mg Inj SUBQ SCH (09:27)
--- NOTE | 2019-11-13 10:06 | General Progress Note ---
Assessment/Plan Assessment/Plan: 79 yo F w/ no known PMHx (pt poor historian & limited by language barrier) who was BIBA after being found down on the [address]. c/o dizziness found to be hyponatremic. #Hyponatremia, suspect chronic #Hypokalemia - resolved #Hypophosphatemia #Dehydration (tachy, elevated bun/cr, imp w/ fluids in ED) - nephrology consult - 3% gtt per nephro - close obs of Na correction w/ serial chem, goal < 10meq per 24 hrs #Acute encephalopathy w/ fall #Possible syncope, near syncope (suspect due to dehydration) - CTB -> no acute changes - no Fx on BL Knee XR - desk monitor - TTE - Will consider cards consult if episodes persist #Pulmonary abn - Left perihilar 3 cm prominence which may be artifactual, consolidation, versus lesion. - repeat cxr #Hx HTN - ctm - prn hydral po for sbp > 160 #FEN/PPx - IVF as above - replete lytes as needed - Regular diet - Lovenox ppx, SCDs, early ambulation FULL CODE I spent 38 min on this case and 18 min was dedicated to counseling and care coordination including discussion including communication w/ overnight coverage , consultants, RN at bedside. Time of this note may not reflect the time of the clinical encounter. Subjective Date patient seen: Nov 13, 2019 Allergies: Coded Allergies: No Known Allergies (Unverified , 11/11/19) Subjective AVSS Admitted to floor Na stable on 3% gtt, 124 MS stable Denies cp, sob, palp, general pain or dizziness 12 pt ros neg except as above Objective Last 24 Hour Vital Signs Date Time Temp Pulse Resp B/P (MAP) Pulse Ox O2 Delivery O2 Flow Rate FiO2 11/13/19 08:00 97.7 76 18 140/83 (102) 97 11/13/19 07:45 98.0 87 17 123/79 100 Room Air 98 11/13/19 04:33 98.2 84 17 125/85 99 Room Air 11/13/19 01:46 98.2 86 18 139/60 99 Room Air 11/13/19 00:49 98.2 68 17 125/65 99 Room Air 11/12/19 23:30 98.2 81 18 168/76 99 Room Air 11/12/19 22:35 98.2 73 18 126/69 99 Room Air 11/12/19 21:30 98.2 89 18 153/68 100 Room Air 11/12/19 20:30 98.2 91 18 135/67 100 Room Air 11/12/19 19:58 98.2 95 18 137/66 (89) 100 11/12/19 19:50 Room Air 11/12/19 19:15 98.2 88 18 137/66 99 Room Air 11/12/19 18:15 174/80 11/12/19 18:04 98.2 82 18 154/92 98 Room Air 98 11/12/19 15:18 98.2 82 18 150/90 98 Room Air 98 11/12/19 10:45 98.2 74 18 135/87 98 Room Air 98 Laboratory Tests 11/12/19 12:03: Sodium Level 119*L, Potassium Level 3.3L, Chloride Level 89L, Carbon Dioxide Level 19L, Anion Gap 11, Blood Urea Nitrogen 5L, Creatinine 0.4L, Estimat Glomerular Filtration Rate > 60, Glucose Level 109H, Calcium Level 8.6 11/12/19 16:00: Sodium Level 124L, Potassium Level 3.3L, Chloride Level 92L, Carbon Dioxide Level 18L, Anion Gap 14, Blood Urea Nitrogen 4L, Creatinine 0.5L, Estimat Glomerular Filtration Rate > 60, Glucose Level 116H, Calcium Level 8.4L 11/12/19 20:37: Sodium Level 123L, Potassium Level 3.9, Chloride Level 93L, Carbon Dioxide Level 21, Anion Gap 9, Blood Urea Nitrogen 8, Creatinine 0.7, Estimat Glomerular Filtration Rate > 60, Glucose Level 135H, Calcium Level 8.9 11/12/19 22:30: Urine Osmolality 313L, Urine Random Sodium 109 11/13/19 00:38: Sodium Level 125L, Potassium Level 4.1, Chloride Level 95L, Carbon Dioxide Level 21, Anion Gap 9, Blood Urea Nitrogen 7, Creatinine 0.6, Estimat Glomerular Filtration Rate > 60, Glucose Level 131H, Calcium Level 8.3L 11/13/19 04:00: Sodium Level 124L, Potassium Level 4.0, Chloride Level 94L, Carbon Dioxide Level 21, Anion Gap 9, Blood Urea Nitrogen 8, Creatinine 0.6, Estimat Glomerular Filtration Rate > 60, Glucose Level 132H, Calcium Level 8.9, Phosphorus Level 2.0L, Magnesium Level 1.8, Thyroid Stimulating Hormone (TSH) 0.199L 11/13/19 05:25: Sodium Level 124L, Potassium Level 4.0, Chloride Level 94L, Carbon Dioxide Level 21, Anion Gap 9, Blood Urea Nitrogen 7, Creatinine 0.7, Estimat Glomerular Filtration Rate > 60, Glucose Level 224H, Calcium Level 8.9, Cortisol AM Sample [Pending] 11/13/19 07:45: Sodium Level [Pending], Potassium Level [Pending], Chloride Level [Pending], Carbon Dioxide Level [Pending], Blood Urea Nitrogen [Pending], Creatinine [ Pending], Estimat Glomerular Filtration Rate [Pending], Glucose Level [Pending] , Calcium Level [Pending] Height (Feet): 5 Height (Inches): 2.00 Weight (Pounds): 110 Objective General Appearance: WD/WN, no apparent distress, alert HEENT: normocephalic, atraumatic, anicteric, PERRL, EOMI Neck: normal alignment, supple Respiratory/Chest: lungs clear, normal breath sounds, no respiratory distress Cardiovascular/Chest: normal peripheral pulses, regular rhythm, regularly irregular, no gallop/murmur, no JVD Abdomen: non tender, soft Extremities: normal inspection, no edema Neurologic: education coordinator II-XII grossly normal, alert Russ Jack MD Nov 13, 2019 10:06
--- NOTE | 2019-11-13 10:49 | Nephrology Progress Note ---
Assessment/Plan Plan #Hyponatremia- likely hypovolumic given response to hydration- urine chemistries however suggest excess free water intake given low urine osmol and urine sodium 40 - however checked after NS hydration administered #AMS and generalized weakness likely due to severe hyponatremia #possible HTN #s/p fall #syncope? - switch to d5ns + 20 kcl at 75cc - change BMP to q6hr - replete K - monitor mag and phos daily - am cortisol pending - target correction < 10 meq over 24 hours- sodium 124 at this time - hydralazine prn for elevated BP - 2d echo total time spent 46 minutes, more than 50% on care coordination and counseling Subjective ROS Limited/Unobtainable: No Constitutional: Denies: no symptoms, chills, diaphoresis, fever, malaise, weakness, other HEENT: Denies: no symptoms, eye pain, blurred vision, tearing, double vision, ear pain, ear discharge, nose pain, nose congestion, throat pain, throat swelling, mouth pain, mouth swelling, other Genitourinary: Denies: no symptoms, burning, discharge, frequency, flank pain, hematuria, incontinence, pain, urgency, other Neurologic/Psychiatric: Denies: no symptoms, anxiety, depressed, emotional problems, headache, numbness, paresthesia, pre-existing deficit, seizure, tingling, tremors, weakness, other Subjective sodium slowly uptrending feeling better today alert and oriented wants to go home Objective Objective Last 24 Hour Vital Signs Date Time Temp Pulse Resp B/P (MAP) Pulse Ox O2 Delivery O2 Flow Rate FiO2 11/13/19 09:00 Room Air 11/13/19 08:00 102 11/13/19 08:00 Room Air 11/13/19 08:00 97.7 76 18 140/83 (102) 97 11/13/19 07:45 98.0 87 17 123/79 100 Room Air 98 11/13/19 04:33 98.2 84 17 125/85 99 Room Air 11/13/19 01:46 98.2 86 18 139/60 99 Room Air 11/13/19 00:49 98.2 68 17 125/65 99 Room Air 11/12/19 23:30 98.2 81 18 168/76 99 Room Air 11/12/19 22:35 98.2 73 18 126/69 99 Room Air 11/12/19 21:30 98.2 89 18 153/68 100 Room Air 11/12/19 20:30 98.2 91 18 135/67 100 Room Air 11/12/19 19:58 98.2 95 18 137/66 (89) 100 11/12/19 19:50 Room Air 11/12/19 19:15 98.2 88 18 137/66 99 Room Air 11/12/19 18:15 174/80 11/12/19 18:04 98.2 82 18 154/92 98 Room Air 98 11/12/19 15:18 98.2 82 18 150/90 98 Room Air 98 Laboratory Tests 11/12/19 12:03: Sodium Level 119*L, Potassium Level 3.3L, Chloride Level 89L, Carbon Dioxide Level 19L, Anion Gap 11, Blood Urea Nitrogen 5L, Creatinine 0.4L, Estimat Glomerular Filtration Rate > 60, Glucose Level 109H, Calcium Level 8.6 11/12/19 16:00: Sodium Level 124L, Potassium Level 3.3L, Chloride Level 92L, Carbon Dioxide Level 18L, Anion Gap 14, Blood Urea Nitrogen 4L, Creatinine 0.5L, Estimat Glomerular Filtration Rate > 60, Glucose Level 116H, Calcium Level 8.4L 11/12/19 20:37: Sodium Level 123L, Potassium Level 3.9, Chloride Level 93L, Carbon Dioxide Level 21, Anion Gap 9, Blood Urea Nitrogen 8, Creatinine 0.7, Estimat Glomerular Filtration Rate > 60, Glucose Level 135H, Calcium Level 8.9 11/12/19 22:30: Urine Osmolality 313L, Urine Random Sodium 109 11/13/19 00:38: Sodium Level 125L, Potassium Level 4.1, Chloride Level 95L, Carbon Dioxide Level 21, Anion Gap 9, Blood Urea Nitrogen 7, Creatinine 0.6, Estimat Glomerular Filtration Rate > 60, Glucose Level 131H, Calcium Level 8.3L 11/13/19 04:00: Sodium Level 124L, Potassium Level 4.0, Chloride Level 94L, Carbon Dioxide Level 21, Anion Gap 9, Blood Urea Nitrogen 8, Creatinine 0.6, Estimat Glomerular Filtration Rate > 60, Glucose Level 132H, Calcium Level 8.9, Phosphorus Level 2.0L, Magnesium Level 1.8, Thyroid Stimulating Hormone (TSH) 0.199L 11/13/19 05:25: Sodium Level 124L, Potassium Level 4.0, Chloride Level 94L, Carbon Dioxide Level 21, Anion Gap 9, Blood Urea Nitrogen 7, Creatinine 0.7, Estimat Glomerular Filtration Rate > 60, Glucose Level 224H, Calcium Level 8.9, Cortisol AM Sample [Pending] Height (Feet): 5 Height (Inches): 2.00 Weight (Pounds): 110 General Appearance: no apparent distress, alert, cachetic EENT: PERRL/EOMI, normal ENT inspection Neck: non-tender, normal alignment Cardiovascular: normal peripheral pulses, normal rate, regular rhythm Respiratory/Chest: lungs clear, normal breath sounds Abdomen: normal bowel sounds, non tender, soft Extremities: normal range of motion, non-tender Neurologic: alert, oriented x 3, responsive Conrad Noland M.D. Nov 13, 2019 10:49
--- NOTE | 2019-11-13 12:00 | NUR ---
NURSE NOTES: Patient and patient family member would like to leave AMA. Per Patient will speak with primary physician, Dr. Espino, for follow up care. Spoke with Family member, Daughter, would like to leave hospital, stated for this pandemic period, would like my mom to stay with us and will bring her to Dr. Espino on Thursday. Dr. Jack made aware patient's wish. Patient explained risk and disadvantages of leaving AMA, Patient AOx4, stated understood the risks but still want to leave.
--- NOTE | 2019-11-13 12:06 | NUR ---
NURSE NOTES: Dr. Jack made aware patient left AMA. Patient signed AMA form, would like to leave hospital and will seek further care with primary physician on Thursday, Family member agree with Patient's decision. cafeteria monitor returned to equipment monitor phototypesetting, IV removed, ID band removed and placed in shredder.
--- NOTE | 2019-11-13 15:28 | Discharge Summary ---
Discharge Summary Hospital Course Date of Admission Nov 13, 2019 at 07:37 Date of Discharge Nov 13, 2019 at 12:23 Admitting Diagnosis weakness, hyponatremia HPI Franchesca Anderson is a 79 year old female who was admitted on Nov 13, 2019 at 07:37 for Weakness And Hyponatremia Consultations Nephrology Procedures none Hospital Course 79 yo F w/ no known PMHx (pt poor historian & limited by language barrier) who was BIBA after being found down on the [address]. c/o dizziness found to be hyponatremic. Evaluated by nephrology and was started on 3% gtt w/improvement in Na to 124. Pt was contacted by her PCP and told to leave AMA due to risk of COVID 19 exposure in the hospital. She will follow up w/ PCP on Thursday morning. Pt left AMA. See below for details. #Hyponatremia, suspect chronic #Hypokalemia - resolved #Hypophosphatemia #Dehydration (tachy, elevated bun/cr, imp w/ fluids in ED) - nephrology consult - 3% gtt per nephro - close obs of Na correction w/ serial chem, goal < 10meq per 24 hrs #Acute encephalopathy w/ fall #Possible syncope, near syncope (suspect due to dehydration) - CTB -> no acute changes - no Fx on BL Knee XR - patient monitor - TTE - Will consider cards consult if episodes persist #Pulmonary abn - Left perihilar 3 cm prominence which may be artifactual, consolidation, versus lesion. - repeat cxr #Hx HTN - ctm - prn hydral po for sbp > 160 #FEN/PPx - IVF as above - replete lytes as needed - Regular diet - Lovenox ppx, SCDs, early ambulation Discharge Discharge Vital Signs Last Vital Signs Date Time Temp Pulse Resp B/P (MAP) Pulse Ox O2 Delivery O2 Flow Rate FiO2 11/13/19 09:00 Room Air 11/13/19 08:00 102 11/13/19 08:00 97.7 18 140/83 (102) 97 11/13/19 07:45 98 Discharge Disposition Patient was discharged to Discharge Diagnoses: (1) Hyponatremia Discharge Instructions Discharge Instructions Follow up with: pcp mon am Russ Jack MD Nov 13, 2019 15:28
== END 2019-11-13 12:23 | disposition left against medical advice (07) | DRG 641 ==
LOC: EDBD 19:26 → EMR 20:46 → EDBEDREQ 11-12 14:32 → EDBEDREQSVC 11-12 14:32 → EDBEDREQ 11-13 07:31 → 2E 11-13 07:37
DX: E87.1 Hypo-osmolality and hyponatremia (principal); G93.40 Encephalopathy, unspecified; E86.0 Dehydration; E87.6 Hypokalemia; R55 Syncope and collapse; I10 Essential (primary) hypertension; R91.8 Other nonspecific abnormal finding of lung field
CPT/HCPCS: 36415; 70450; 71045; 80048; 80053; 81003; 82043; 82436; 82533; 82570; 82962; 83735; 83880; 83930; 83935; 84100; 84300; 84443; 84484; 85025; 93005; 93306; 96361; 96365; 99284; J8499